=== PATIENT | male | born 1985 ===

== ENCOUNTER 2017-09-13 09:53 | Day surgery (SDC) | payer BC ==
[~2017-09-13 09:53] MED LIST: Lactated Ringers 1,000 ML IV SCH; Lidocaine 1%/Sod Bicarbonate in NS 8.4% 1 ML Syringe IDERM PRN; Sodium Chloride 0.9% 10 ML Syringe FLUSH PRN
[2017-09-13] MEDS ORDERED: Lidocaine 1% 4 ML ONE (10:02)
[2017-09-13] MEDS ORDERED: Propofol 200 MG/20 ML SDV ONE (10:02)
[2017-09-13] MEDS ORDERED: fentaNYL 100 MCG/2 ML SDV ONE (10:02)
--- NOTE | 2017-09-13 10:11 | PCM.PREANE ---
Preanesthetic Assessment - Anesthesia/Transfusion/Family Hx Anesthesia History: Prior Anesthesia Without Reaction Family History of Anesthesia Reaction: No Transfusion History: No Prior Transfusion(s) - Review of Systems General: No Symptoms Pulmonary: No Symptoms Cardiovascular: No Symptoms, Chest Pain (sharp shooting pain in chest- randomly occurs split second) Gastrointestinal: No Symptoms Neurological: No Symptoms Other: Reports: Neck Pain (sleeping situation or work related and stress) - Physical Assessment NPO Status Date: 09/12/17 NPO Status Time: 23:45 Pulse: 68 O2 Sat by Pulse Oximetry: 99 Respiratory Rate: 16 Blood Pressure: 110/71 Temperature: 97.9 F Height: 5 ft 9 in Weight: 85.275 kg ASA Class: 2 Mental Status: Alert & Oriented x3 Airway Class: Mallampati = 1 Dentition: Reports: Normal Dentition Thyro-Mental Finger Breadths: 3 Mouth Opening Finger Breadths: 3 ROM/Head Extension: Full Lungs: Clear to Auscultation, Normal Respiratory Effort Cardiovascular: Regular Rate, Regular Rhythm - Allergies Allergies/Adverse Reactions: Allergies Allergy/AdvReac Type Severity Reaction Status Date / Time animal dander Allergy Cannot Verified 09/12/17 15:18 Remember dust Allergy Cannot Uncoded 09/12/17 15:18 Remember - Blood Blood Available: No - Acknowledgements Anesthesia Type Planned: MAC Pt an Appropriate Candidate for the Planned Anesthesia: Yes Alternatives and Risks of Anesthesia Discussed w Pt/Guardian: Yes Pt/Guardian Understands and Agrees with Anesthesia Plan: Yes PreAnesthesia Questionnaire Cardiovascular History: Reports: None Respiratory History: Reports: None Gastrointestinal History: Reports: Other (See Below) Other Gastrointestinal History: anal fissure, hemorrhoids Genitourinary History: Reports: None Musculoskeletal History: Reports: None Neurological History: Reports: None Psychiatric History: Reports: ADD Endocrine/Metabolic History: Reports: None Hematologic History: Reports: None Immunologic History: Reports: None Oncologic (Cancer) History: Reports: None Dermatologic History: Reports: Other (See Below) Other Dermatologic History: acne vulgaris - Past Surgical History Head Surgeries/Procedures: Reports: None HEENT Surgical History: Reports: Oral Surgery Cardiovascular Surgical History: Reports: None Respiratory Surgical History: Reports: None GI Surgical History: Reports: None Female Surgical History: Reports: None Male Surgical History: Reports: None Endocrine Surgical History: Reports: None Neurological Surgical History: Reports: None Musculoskeletal Surgical History: Reports: None - SUBSTANCE USE Smoking Status *Q: Current Every Day Smoker Tobacco Use Within Last Twelve Months: Cigarettes Second Hand Smoke Exposure: No Days Per Week of Alcohol Use: 1 (not even that much) Number of Drinks Per Day: 1 Total Drinks Per Week: 1 Recreational Drug Use History: No Recreational Drug Type: Reports: Marijuana/Hashish (in past) - HOME MEDS Home Medications: Home Meds Methylphenidate HCl [Methylphenidate ER] 54 mg PO DAILY 09/12/17 [History] - CURRENT (IN HOUSE) MEDS Current Meds: Current Medications Lactated Ringer's (Ringers, Lactated) 1,000 mls @ 125 mls/hr IV ASDIRECTED YESSENIA Stop: 09/13/17 23:00 Lidocaine/Sodium Bicarbonate (Buffered Lidocaine 1% In Ns 8.4%) 0.25 ml IDERM ONETIME PRN PRN Reason: Prior to IV Start Stop: 09/13/17 18:00 Sodium Chloride (Saline Flush) 10 ml FLUSH ASDIRECTED PRN PRN Reason: Keep Vein Open Stop: 09/13/17 18:00 Discontinued Medications Fentanyl (Sublimaze) Confirm Administered Dose 100 mcg .ROUTE .STK-MED ONE Stop: 09/13/17 10:03 Lidocaine HCl (Xylocaine-Mpf 1%) Confirm Administered Dose 4 mls @ as directed .ROUTE .STK-MED ONE Stop: 09/13/17 10:03 Propofol (Diprivan 20 Ml) Confirm Administered Dose 200 mg .ROUTE .STK-MED ONE Stop: 09/13/17 10:03
--- NOTE | 2017-09-13 10:48 | PCM.OPNOTE ---
- General Post-Op/Procedure Note Date of Surgery/Procedure: 09/13/17 Operative Procedure(s): 1. Anoscopy. 2. Two column rubber band ligation Findings: No fissures seen. The patient had prominent left lateral and right posterior internal hemorrhoids. Pre Op Diagnosis: Intermittent red rectal bleeding Post-Op Diagnosis: Two column internal hemorrhoids Anesthesia Technique: MAC, Moderate Sedation Primary Surgeon: Memo Ospina Pathology: None EBL in mLs: 0 Complications: None Condition: Good Free Text/Narrative:: After adequate IV sedation and analgesia with monitoring the patient was placed in the prone jackknife position with his buttocks taped. The perianal region was prepped with Betadine and then draped with 4 field towels. Perianal inspection revealed no anal tags. Digital rectal examination revealed normal sphincter tone. Anoscopy revealed no anterior or posterior fissures. Deeper endoscopic evaluation revealed the prominent left lateral and right posterior internal hemorrhoidal columns. The right anterior area was unremarkable. The sure shot applicator was fired twice in the left lateral column. I then fired more rubber band loads in the right posterior column. There were no comp occasions.
--- NOTE | 2017-09-13 10:52 | PCM48HPAN ---
Post Anesthesia Note - EVALUATION WITHIN 48HRS OF ANESTHETIC Vital Signs in Normal Range: Yes Patient Participated in Evaluation: Yes Respiratory Function Stable: Yes Airway Patent: Yes Cardiovascular Function Stable: Yes Hydration Status Stable: Yes Pain Control Satisfactory: Yes Nausea and Vomiting Control Satisfactory: Yes Mental Status Recovered: Yes Pulse Rate: 68 SaO2: 96 Resp Rate: 16 Temperature: 98.2 F Blood Pressure: 108/67
== END 2017-09-13 11:35 | disposition home or self-care (01) ==
LOC: JD.SDS 09:53
PROVIDERS: ATTEND Surgery
DX: K64.8 Other hemorrhoids (principal); L70.0 Acne vulgaris; F98.8 Other specified behavioral and emotional disorders with onset usually occurring in childhood and adolescence; F17.210 Nicotine dependence, cigarettes, uncomplicated; Z91.09 Other allergy status, other than to drugs and biological substances; Z79.899 Other long term (current) drug therapy
CPT/HCPCS: 46946; J3010; J7120; J2704